=== PATIENT | male | born 1955 | race Two or more races ===

== ENCOUNTER 2018-10-08 11:00 | Outpatient (CLI) | payer MEDICARE, OTHER | END 2018-10-08 23:59 | disposition home or self-care (01) | LOC: MSC 11:00 | PROVIDERS: ATTEND Anesthesiology | DX: M51.36 Other intervertebral disc degeneration, lumbar region (principal); M47.27 Other spondylosis with radiculopathy, lumbosacral region; M25.9 Joint disorder, unspecified; M53.3 Sacrococcygeal disorders, not elsewhere classified; M17.0 Bilateral primary osteoarthritis of knee; M16.9 Osteoarthritis of hip, unspecified; F11.20 Opioid dependence, uncomplicated; M25.561 Pain in right knee; M25.562 Pain in left knee | CPT/HCPCS: G0463; Z7610 ==

== ENCOUNTER 2018-11-05 10:00 | Outpatient (CLI) | payer MEDICARE, OTHER | END 2018-11-05 23:59 | disposition home or self-care (01) | LOC: MSC 10:00 | PROVIDERS: ATTEND Anesthesiology | DX: M51.36 Other intervertebral disc degeneration, lumbar region (principal); M47.27 Other spondylosis with radiculopathy, lumbosacral region; M53.3 Sacrococcygeal disorders, not elsewhere classified; M25.9 Joint disorder, unspecified; M16.9 Osteoarthritis of hip, unspecified; M17.0 Bilateral primary osteoarthritis of knee; F11.20 Opioid dependence, uncomplicated ==

== ENCOUNTER 2018-12-03 09:15 | Outpatient (CLI) | payer MEDICARE, OTHER | END 2018-12-03 23:59 | disposition home or self-care (01) | LOC: MSC 09:15 | PROVIDERS: ATTEND Anesthesiology | DX: M51.36 Other intervertebral disc degeneration, lumbar region (principal); M47.27 Other spondylosis with radiculopathy, lumbosacral region; M53.3 Sacrococcygeal disorders, not elsewhere classified; M25.9 Joint disorder, unspecified; M16.9 Osteoarthritis of hip, unspecified; M17.0 Bilateral primary osteoarthritis of knee; F11.20 Opioid dependence, uncomplicated ==

== ENCOUNTER 2018-12-12 06:43 | Day surgery (SDC) | payer MEDICARE, OTHER ==
[2018-12-12] MEDS ORDERED: ANESTHESIA TRAY IN PYXIS 1 EA TRAY MC ONE (07:10)
[2018-12-12] MEDS ORDERED: IOHEXOL 240MG/ML 50 ML IV ONE (07:10)
[2018-12-12] MEDS ORDERED: BUPIVACAINE 0.5 % PF 150 MG/30 ML VIAL ONE (07:10)
[2018-12-12] MEDS ORDERED: LIDOCAINE HCL/PF 1% 30 ML SDV ONE (07:11)
[2018-12-12] MEDS ORDERED: methylPREDNISolone ACETATE 80 MG/ML VIAL ONE (07:11)
== END 2018-12-12 09:41 | disposition home or self-care (01) ==
LOC: DS 06:43
PROVIDERS: ATTEND Anesthesiology
DX: M47.817 Spondylosis without myelopathy or radiculopathy, lumbosacral region (principal); M47.816 Spondylosis without myelopathy or radiculopathy, lumbar region; G89.29 Other chronic pain
CPT/HCPCS: 64493; 64494; 64495; 72020; J1040; J3490; Q9966

== ENCOUNTER 2018-12-31 08:45 | Outpatient (CLI) | payer MEDICARE, OTHER | END 2018-12-31 23:59 | disposition home or self-care (01) | LOC: MSC 08:45 | PROVIDERS: ATTEND Anesthesiology | DX: M54.5 Low back pain (principal); M25.562 Pain in left knee; M25.561 Pain in right knee; M51.36 Other intervertebral disc degeneration, lumbar region; M47.27 Other spondylosis with radiculopathy, lumbosacral region; M25.9 Joint disorder, unspecified; M53.3 Sacrococcygeal disorders, not elsewhere classified; M16.9 Osteoarthritis of hip, unspecified; F11.20 Opioid dependence, uncomplicated; M17.0 Bilateral primary osteoarthritis of knee ==

== ENCOUNTER 2019-02-04 09:30 | Outpatient (CLI) | payer MEDICARE, OTHER ==
[2019-02-06] MEDS ORDERED: methylPREDNISolone ACETATE 80 MG/ML VIAL ONE (08:49)
[2019-02-06] MEDS ORDERED: BUPIVACAINE 0.25% 75 MG/30 ML VIAL ONE (08:49)
[2019-02-06] MEDS ORDERED: LIDOCAINE HCL/PF 1% 30 ML SDV ONE (08:49)
[2019-02-06] MEDS ORDERED: OXYMETAZOLINE HCL NASAL SPRAY 30 ML BOTTLE NS ONE (08:50)
== END 2019-02-04 23:59 | disposition home or self-care (01) ==
LOC: MSC 09:30
PROVIDERS: ATTEND Anesthesiology
DX: M51.36 Other intervertebral disc degeneration, lumbar region (principal); M47.27 Other spondylosis with radiculopathy, lumbosacral region; M17.0 Bilateral primary osteoarthritis of knee; M53.3 Sacrococcygeal disorders, not elsewhere classified; M16.9 Osteoarthritis of hip, unspecified; F11.20 Opioid dependence, uncomplicated; M25.9 Joint disorder, unspecified
CPT/HCPCS: J1040; J3490

== ENCOUNTER 2019-02-06 05:50 | Day surgery (SDC) | payer MEDICARE, OTHER | END 2019-02-06 10:33 | disposition home or self-care (01) | LOC: DS 05:50 | PROVIDERS: ATTEND Anesthesiology | DX: M47.816 Spondylosis without myelopathy or radiculopathy, lumbar region (principal); M54.5 Low back pain; Z79.899 Other long term (current) drug therapy | CPT/HCPCS: 64493; 64494; 64495; 72020; A6209; J3490 ==

== ENCOUNTER 2019-03-11 10:07 | Outpatient (CLI) | payer MEDICARE, OTHER | END 2019-03-11 23:59 | disposition home or self-care (01) | LOC: MSC 10:07 | PROVIDERS: ATTEND Anesthesiology | DX: M54.5 Low back pain (principal); M51.36 Other intervertebral disc degeneration, lumbar region; M47.27 Other spondylosis with radiculopathy, lumbosacral region; M53.3 Sacrococcygeal disorders, not elsewhere classified; M17.0 Bilateral primary osteoarthritis of knee; M16.9 Osteoarthritis of hip, unspecified; M25.9 Joint disorder, unspecified; F11.20 Opioid dependence, uncomplicated ==

== ENCOUNTER 2019-04-08 09:15 | Outpatient (CLI) | payer MEDICARE, OTHER | END 2019-04-08 23:59 | disposition home or self-care (01) | LOC: MSC 09:15 | PROVIDERS: ATTEND Anesthesiology | DX: M51.36 Other intervertebral disc degeneration, lumbar region (principal); M47.27 Other spondylosis with radiculopathy, lumbosacral region; M53.3 Sacrococcygeal disorders, not elsewhere classified; M25.9 Joint disorder, unspecified; M16.9 Osteoarthritis of hip, unspecified; M17.0 Bilateral primary osteoarthritis of knee; Z79.1 Long term (current) use of non-steroidal anti-inflammatories (NSAID); Z79.891 Long term (current) use of opiate analgesic ==

== ENCOUNTER 2019-05-06 10:30 | Outpatient (CLI) | payer MEDICARE, OTHER | END 2019-05-06 23:59 | disposition home or self-care (01) | LOC: MSC 10:30 | PROVIDERS: ATTEND Anesthesiology | DX: M51.36 Other intervertebral disc degeneration, lumbar region (principal); M47.27 Other spondylosis with radiculopathy, lumbosacral region; M25.9 Joint disorder, unspecified; M53.3 Sacrococcygeal disorders, not elsewhere classified; M16.9 Osteoarthritis of hip, unspecified; M17.0 Bilateral primary osteoarthritis of knee; F11.20 Opioid dependence, uncomplicated ==

== ENCOUNTER 2019-06-03 08:30 | Outpatient (CLI) | payer MEDICARE, OTHER | END 2019-06-03 23:59 | disposition home or self-care (01) | LOC: MSC 08:30 | PROVIDERS: ATTEND Anesthesiology | DX: M51.36 Other intervertebral disc degeneration, lumbar region (principal); M47.27 Other spondylosis with radiculopathy, lumbosacral region; M53.3 Sacrococcygeal disorders, not elsewhere classified; M25.9 Joint disorder, unspecified; M16.9 Osteoarthritis of hip, unspecified; M17.0 Bilateral primary osteoarthritis of knee; F11.20 Opioid dependence, uncomplicated; Z79.1 Long term (current) use of non-steroidal anti-inflammatories (NSAID) ==

== ENCOUNTER 2019-07-01 09:00 | Outpatient (CLI) | payer MEDICARE, OTHER | END 2019-07-01 23:59 | disposition home or self-care (01) | LOC: MSC 09:00 | PROVIDERS: ATTEND Anesthesiology | DX: M51.36 Other intervertebral disc degeneration, lumbar region (principal); M47.27 Other spondylosis with radiculopathy, lumbosacral region; M25.9 Joint disorder, unspecified; M53.3 Sacrococcygeal disorders, not elsewhere classified; M16.9 Osteoarthritis of hip, unspecified; M17.0 Bilateral primary osteoarthritis of knee; F11.20 Opioid dependence, uncomplicated; Z79.1 Long term (current) use of non-steroidal anti-inflammatories (NSAID) ==

== ENCOUNTER → 2019-08-26 | Outpatient (CLI) | payer MEDICARE, OTHER | END | disposition home or self-care (01) | LOC: MSC 08:15 | PROVIDERS: ATTEND Anesthesiology | DX: M51.36 Other intervertebral disc degeneration, lumbar region (principal); M47.27 Other spondylosis with radiculopathy, lumbosacral region; M53.3 Sacrococcygeal disorders, not elsewhere classified; M25.9 Joint disorder, unspecified; M17.0 Bilateral primary osteoarthritis of knee; M16.9 Osteoarthritis of hip, unspecified; F11.20 Opioid dependence, uncomplicated; Z79.1 Long term (current) use of non-steroidal anti-inflammatories (NSAID) ==

== ENCOUNTER → 2019-10-07 | Outpatient (CLI) | payer MEDICARE, OTHER | END | disposition home or self-care (01) | LOC: MSC 08:25 | PROVIDERS: ATTEND Anesthesiology | DX: M51.36 Other intervertebral disc degeneration, lumbar region (principal); M47.27 Other spondylosis with radiculopathy, lumbosacral region; M53.3 Sacrococcygeal disorders, not elsewhere classified; M25.9 Joint disorder, unspecified; M17.0 Bilateral primary osteoarthritis of knee; M16.9 Osteoarthritis of hip, unspecified; F11.20 Opioid dependence, uncomplicated ==